=== PATIENT | female | born 1990 | race Caucasian/White ===

== ENCOUNTER 2020-10-24 18:05 | Emergency (ER) | payer OTHER ==
[~2020-10-24] VITALS: Ht 172.7 cm; Wt 97.5 kg
[2020-10-24] MEDS ORDERED: BACITRACIN-POL3.5 GM TOP ×2 (19:55→20:33)
[2020-10-24] MEDS ORDERED: KEFLEX750 MG PO (19:55)
[2020-10-24] MEDS ORDERED: AUGMENTIN 875-1 EACH PO (20:30)
[2020-10-24 20:52] VITALS: BP 124/83
== END 2020-10-24 20:52 | disposition home or self-care (01) ==
LOC: ER 18:05
DX: S80.871A Other superficial bite, right lower leg, initial encounter (principal); W54.0XXA Bitten by dog, initial encounter; Y93.H2 Activity, gardening and landscaping; Y92.096 Garden or yard of other non-institutional residence as the place of occurrence of the external cause; Y99.8 Other external cause status